=== PATIENT | male | born 1940 ===

== ENCOUNTER 2021-03-26 06:33 | Day surgery (SDC) | payer MEDICARE ==
--- NOTE | 2021-03-24 10:50 | Anesthesia Consultation ---
Anesthesia Consult and Med Hx Date of service: 03/26/21 - Airway Anesthetic Teeth Evaluation: Good, Partials ROM Head & Neck: Adequate Mental/Hyoid Distance: Adequate Mallampati Class: Class III Intubation Access Assessment: Possibly Difficult - Pulmonary Exam CTA: Yes - Cardiac Exam Cardiac Exam: RRR - Pre-Operative Health Status ASA Pre-Surgery Classification: ASA2 Proposed Anesthetic Plan: General Nerve Block: TAP - Pulmonary Hx Smoking: No Hx Respiratory Symptoms: No Hx Sleep Apnea: No (ANTWON PRE SCREEN LOW RISK) - Cardiovascular System Hx Hypertension: Yes (prior hx HTN; no longer on meds) Hx Heart Attack/AMI: No Hx Percutaneous Transluminal Coronary Angioplasty (PTCA): No Hx Cardia Arrhythmia: No - Central Nervous System CVA: No - Endocrine Hx Renal Disease: No Hx Liver Disease: No Hx Insulin Dependent Diabetes: No Hx Non-Insulin Dependent Diabetes: No Hx Thyroid Disease: No - Other Systems Hx Obesity: No - Additional Comments Anesthesia Medical History Comments: No hx anesthetic complications.
[2021-03-24 11:05] LABS: Hematocrit 35.9 % (35.5-45.6); Hemoglobin 12.2 gm/dl (11.8-15.2); Mean Corpuscular HGB Conc 34 % (32-34); Mean Corpuscular Volume 91 fl (84-94); Platelet Count 156 K/mm3 (140-440); Red Blood Count 3.95 M/mm3 (3.65-5.03); Red Cell Distribution Width 13.8 % (13.2-15.2)
[2021-03-24 12:56] LABS: Albumin 4.1 g/dL (3.9-5); Calcium 9.3 mg/dL (8.4-10.2)
[~2021-03-26 06:33] MED LIST: LACTATED RINGERS 1,000 ML IV SCH; MANNITOL/SORBITOL SOLUTION 3,000 ML IRRIG.SOLN IR ONE; WATER FOR IRRIG STERILE 1,500 ML BOTTLE IR ONE; WATER FOR IRRIG STERILE 2000 ML IR ONE
[2021-03-26] MEDS ORDERED: SODIUM CHLORIDE 0.9% 1000 ML 1,000 ML ONE (07:21)
--- NOTE | 2021-03-26 07:24 | Anesthesia Day of Surgery ---
Anesthesia Day of Surgery - Day of Surgery Patient Examined: Yes Patient H&P Reviewed: Yes Patient is NPO: Yes
[2021-03-26] MEDS ORDERED: ONDANSETRON 4 MG/2 ML INJ IV PRN (08:00)
[2021-03-26] MEDS ORDERED: MIDAZOLAM 2 MG/2 ML INJ IV NR (08:00)
[2021-03-26] MEDS ORDERED: HYDROcodone/ACETAMINOPHEN 5-325 MG TAB PO PRN (08:00)
[2021-03-26] MEDS ORDERED: MIDAZOLAM 2 MG/2 ML INJ ONE (08:11)
[2021-03-26] MEDS ORDERED: ceFAZolin/STERILE WATER 2 GM/20 ML SYRINGE IV NR (08:30)
[2021-03-26] MEDS ORDERED: propofoL 200 MG/20 ML VIAL IV ONE (08:31)
[2021-03-26] MEDS ORDERED: ONDANSETRON 4 MG/2 ML INJ ONE ×2 (08:47→09:27)
[2021-03-26] MEDS ORDERED: KETAMINE/STERILE WATER 50 MG/ML SYRINGE ONE (08:48)
[2021-03-26] MEDS ORDERED: WATER FOR IRRIG STERILE 2000 ML IR ONE (08:55)
[2021-03-26] MEDS ORDERED: WATER FOR IRRIG STERILE 1,500 ML BOTTLE IR ONE (08:55)
[2021-03-26] MEDS ORDERED: SODIUM CHLORIDE 0.9% IRR 1,000 ML BOTTLE IR ONE (08:56)
[2021-03-26] MEDS ORDERED: KETOROLAC 30 MG/1 ML INJ ONE (09:27)
[2021-03-26] MEDS ORDERED: dexAMETHasone 20 MG/5 ML VIAL ONE (09:27)
--- NOTE | 2021-03-26 09:38 | Short Stay Summary ---
Short Stay Documentation Date of service: 03/26/21 - History H&P: obtained from office - Allergies and Medications Current Medications: Allergies No Known Allergies Allergy (Unverified 03/17/21 12:28) Home Medications Medication Instructions Recorded Confirmed Last Taken Type Dorzolamide HCl 1 drop OU BID 03/17/21 03/17/21 Unknown History Latanoprost 1 drop OS HS 03/17/21 03/17/21 Unknown History Multivit-Min/Iron/Folic Acid/K 1 tab PO DAILY 03/17/21 03/17/21 Unknown History [Adults Multivitamin Tablet] Prednisolone Acetate 1 drop OS DAILY 03/17/21 03/17/21 Unknown History Rosuvastatin Calcium [Crestor] 20 mg PO DAILY 03/17/21 03/17/21 Unknown History Tamsulosin [Flomax] 0.8 mg PO DAILY 03/17/21 03/17/21 Unknown History Active Medications Hydrocodone Bitart/Acetaminophen (Hydrocodone/Acetaminophen 5-325 Mg Tab) 2 each PO ONCE PRN PRN Reason: Pain, Moderate (4-6) Stop: 03/26/21 18:00 Cefazolin Sodium (Cefazolin/Sterile Water 2 Gm/20 Ml Syringe) 2 gm IV PREOP NR Stop: 03/26/21 21:00 Hydromorphone HCl (Hydromorphone 1 Mg/1 Ml Inj) 0.5 mg IV Q10MIN PRN PRN Reason: Pain , Severe (7-10) Stop: 03/26/21 18:00 Lactated Ringer's (Lactated Ringers) 1,000 mls @ 100 mls/hr IV DIRECT LINDA Stop: 03/26/21 23:59 Ondansetron HCl (Ondansetron 4 Mg/2 Ml Inj) 4 mg IV ONCE PRN PRN Reason: Nausea And Vomiting Stop: 03/26/21 18:00 - Brief post op/procedure progress note Date of procedure: 03/26/21 Pre-op diagnosis: BPH Post-op diagnosis: same Procedure: CYSTO, TUR MEDIAN LOBE, GREENLIGHT LASER PROSTATE Anesthesia: GETA Surgeon: EDWIN LARA Pathology: list (PROSTATE) Specimen disposition: to lab Condition: stable - Hospital course Hospital course: BACTRIM & SILVIA ON CHART - Disposition Condition at discharge: Stable Disposition: 01 HOME / SELF CARE / HOMELESS Short Stay Discharge Plan Follow up with: NGENY,RISHI Y, MD [Primary Care Provider] - 7 Days
--- NOTE | 2021-03-26 10:05 | Fluoroscopy Report ---
INTRAOPERATIVE FLUOROSCOPY: RETROGRADE UROGRAPHY INDICATION: ENLARGE PROSTATE/VPH. TECHNIQUE: Intraoperative spot images were obtained during the procedure. FINDINGS: No abnormality is seen within the incompletely distended bladder and distal ureters. Please see proce dure note for details. Fluoroscopy Time: 0.2 minutes. Fluoroscopy Images: 5. Signer Name: Ryan Dalton MD Signed: 03/26/2021 10:01 AM Workstation Name: [id number]
[2021-03-26] MEDS: HYDROmorphone 1 MG/1 ML INJ IV PRN ×2 (10:25→10:45)
--- NOTE | 2021-03-26 13:36 | Operative Report ---
DATE OF SURGERY: 03/26/2021 PREOPERATIVE DIAGNOSIS: Benign prostatic hypertrophy. POSTOPERATIVE DIAGNOSIS: Benign prostatic hypertrophy. PROCEDURE: Cystoscopy, TUR median lobe, left retrograde pyelogram, GreenLight laser of the prostate. SURGEON: Gunnar Lynn MD ANESTHESIA: General. ESTIMATED BLOOD LOSS: Minimal. FLUIDS: Crystalloid. COMPLICATIONS: No complications. INDICATIONS: This patient is an 80-year-old gentleman seen in the office with voiding dysfunction despite medical management. Urodynamic testing revealed a peak flow of 1 mL a second and postvoid residual of 200 mL. We discussed options. The patient would benefit from TUR, GreenLight laser. Risks, benefits and complications were explained. DESCRIPTION OF PROCEDURE: The patient was taken to the operative suite, placed in a supine position. After adequate general anesthesia, placed in the dorsal lithotomy position, prepped and draped in a sterile fashion. Pancystourethroscopy was performed with a 22-Georgian Storz cystoscope. No urethral abnormalities. His prostate displayed moderate trilobar obstruction with diffuse trabeculation in the bladder. He also had a prostatic stone, which was extracted and we will give it to the patient. Due to the trabeculation, it is hard to visualize the ureters. I was able to shoot a retrograde on the left, which revealed severe J hooking, could not completely could not see. Next, using a 27-Georgian resectoscope with cutting and coag on 160 and 60, transurethral resection of the median lobe was performed without difficulty. Chips were evacuated out with the Altruja evacuator. Then, I used a GreenLight MoXy fiber. Laser of the lateral lobes was performed starting at 80 robles and going up to 100 robles with adequate destruction of tissue. Urine was pink-tinged. A 22-Georgian 3-way with a catheter guide was placed without difficulty. Rectal exam was benign. Side port of the Marie was plugged. He was extubated and taken to recovery room. He will go home on [place] and [place]. TID: [id number] RECEIPT: [id number] [facility]/SHARITA/DANNY
[2021-03-26 14:10] VITALS: BP 118/55
--- NOTE | 2021-03-26 14:15 | Post Anesthesia Evaluation ---
- Post Anesthesia Evaluation Patient Participated: Yes Airway Patent: Yes Stable Respiratory Function: Yes Nausea/Vomiting: No Temp > 96.8F: Yes Pain Manageable: Yes Adequeate Hydration: Yes Anesthesia Complications: No
== END 2021-03-26 13:15 | disposition home or self-care (01) ==
LOC: OR 06:33
PROVIDERS: ATTEND Urology
DX: N40.1 Benign prostatic hyperplasia with lower urinary tract symptoms (principal); R33.8 Other retention of urine; I10 Essential (primary) hypertension; E78.00 Pure hypercholesterolemia, unspecified; Z79.899 Other long term (current) drug therapy; Z98.890 Other specified postprocedural states
CPT/HCPCS: 36415; 52648; 74420; 80053; 85027; 86850; 86900; 86901; 88305; A4217; J0690; J1100; J1170; J1885; J2250; J2405; J2704; J3490; J7030; J7120; Q9967